=== PATIENT | male | born 1980 | race Caucasian/White ===

== ENCOUNTER 2021-10-03 16:17 | Emergency (ER) | payer OTHER ==
[~2021-10-03] VITALS: Ht 175 cm; Wt 100.0 kg
[2021-10-03 16:22] VITALS: BP 125/91
[2021-10-03] MEDS ORDERED: ONDANSETRON 4 MG/2 ML (SDV) Z0FRAN IVP ONE (17:15)
[2021-10-03] MEDS ORDERED: HYDROmorphone 2 MG/ML VIAL (DILAUDID) IV ONE ×2 (17:15→18:00)
--- NOTE | 2021-10-03 17:32 | Diagnostic Imaging Report ---
INDICATION: Left wrist pain post fall. EXAMINATION: AP, oblique and lateral views of the left wrist were obtained at 5:22 PM. FINDINGS: There is a comminuted impacted displaced fracture of the distal radius. There is dorsal displacement of the carpal row relative to the dominant radial fragment. IMPRESSION: Comminuted, displaced and articular fracture of the distal radius. Dictated by: Dictated on workstation # [id number]
--- NOTE | 2021-10-03 18:02 | ED Upper Extremity ---
General Chief Complaint: Upper Extremity Stated Complaint: L WRIST PAIN Nursing Triage Note: Pt stepped on uneven ground and tripped from standing position and fell on his left wrist. He has obvious deformity and some loss of AROM of his left thumb. Pt states that his left hand was at an odd angle and he remembered his training and pulled on his hand and wrist, straightened it and then held it in position on the way here. Source: patient Exam Limitations: no limitations History of Present Illness Date Seen by Provider: Oct 03, 2021 Time Seen by Provider: 17:57 Initial Comments This is a 41-year-old male that presents to the emergency room for evaluation of left wrist pain. He tripped at home and had a FOOSH injury. He currently rates his pain as a sharp 6 out of 10 that is worse with movement. He denies any other injuries at this time. Onset: just prior to arrival Pain/Injury Location: left wrist Method of Injury: fell Allergies and Home Medications Allergies Coded Allergies: bee venom protein (honey bee) (Verified Allergy, Severe, Anaphylaxis, 10/03/21) clindamycin (Verified Adverse Reaction, Severe, diarrhea, 10/03/21) Patient Home Medication List Home Medication List Reviewed: Yes Review of Systems Constitutional: no symptoms reported EENTM: no symptoms reported Respiratory: no symptoms reported Cardiovascular: no symptoms reported Gastrointestinal: no symptoms reported Genitourinary: no symptoms reported Musculoskeletal: see HPI Past Qtzslyd-Tubljn-Kvhmfe Hx Patient Social History Tobacco Use?: No Smoking Status: Former Smoker Use of E-Cig and/or Vaping dev: No Substance use?: No Alcohol Use?: No Pt feels they are or have been: No Immunizations Up To Date Influenza Vaccine Up-to-Date: Yes; Up-to-Date Physical Exam Vital Signs Vital Signs - First Documented 10/03/21 16:22 Temp 35.9 Pulse 72 Resp 18 B/P (MAP) 125/91 (102) Pulse Ox 96 O2 Delivery Room Air Capillary Refill : Less Than 3 Seconds Height, Weight, BMI Height: '" Weight: lbs. oz. kg; 32.00 BMI Method: General Appearance: WD/WN, no apparent distress HEENT: PERRL/EOMI Cardiovascular: regular rate, rhythm Gastrointestinal: non tender Back: normal inspection Hand: bone tenderness (Tenderness to palpation throughoutDistal radius), deform ity, limited ROM Neurologic/Psychiatric: gas leak tester II-XII nml as tested, oriented x 3 Progress/Results/Core Measures Results/Orders My Orders Orders - MAGED FAUSTIN Hydromorphone Injection (Dilaudid Inject (10/03/21 17:15) Ondansetron Injection (Zofran Injectio (10/03/21 17:15) Wrist, Left, 3 Views Or More (10/03/21 17:01) Hydromorphone Injection (Dilaudid Inject (10/03/21 18:00) Medications Given in ED Current Medications Medications Dose Ordered Sig/Gayatri Route Start Time Stop Time Status Last Admin Dose Admin Hydromorphone HCl 0.5 mg ONCE ONCE IV 10/03/21 17:15 10/03/21 17:16 DC 10/03/21 17:05 0.5 MG Ondansetron HCl 4 mg ONCE ONCE IVP 10/03/21 17:15 10/03/21 17:16 DC 10/03/21 17:05 4 MG Vital Signs/I&O 10/03/21 16:22 Temp 35.9 Pulse 72 Resp 18 B/P (MAP) 125/91 (102) Pulse Ox 96 O2 Delivery Room Air Blood Pressure Mean: 102 Departure Communication (Admissions) Patient is a comminuted, displaced intra-articular distal radius fracture. Images reviewed with Dr. JOSE and at this time we do not feel that reduction is indicated. Patient will be placed in a sugar-tong splint and be given follow-up with the orthopedic team. We discussed very detailed home care and return precautions and he is in agreement to the care plan. Impression Primary Impression: Distal radius fracture, left Disposition: HOME, SELF-CARE Condition: Stable Departure-Patient Inst. Decision time for Depature: 18:01 Referrals: SILVIA ROMEO MD Patient Instructions: Wrist Fracture (DC), How to Use a Shoulder Sling Add. Discharge Instructions: Please follow-up with the orthopedist as we discussed. Return to the emergency room with any severe changes or worsening of symptoms All discharge instructions reviewed with patient and/or family. Voiced understanding. Scripts Ondansetron (Ondansetron Odt) 4 Mg Tab.rapdis 4 MG PO TID for Nausea, #14 TAB Prov: MAGED FAUSTIN 6/25/22 Hydrocodone/Acetaminophen (Hydrocodone-Acetamin 5-325 mg) 5 Mg-325 Mg Tablet 1 TAB PO Q4H PRN for PAIN-MODERATE (5-7), #20 TAB Prov: MAGED FAUSTIN 10/03/21 MAGED FAUSTIN Oct 03, 2021 18:02
[2021-10-03] MEDS ORDERED: ACHD5005 PO (18:04)
[2021-10-03] MEDS ORDERED: ONDA4TAB11 PO (18:04)
== END 2021-10-03 19:12 | disposition home or self-care (01) ==
LOC: ER 16:19
DX: S52.572A Other intraarticular fracture of lower end of left radius, initial encounter for closed fracture (principal); Z87.891 Personal history of nicotine dependence; W01.0XXA Fall on same level from slipping, tripping and stumbling without subsequent striking against object, initial encounter; Y92.009 Unspecified place in unspecified non-institutional (private) residence as the place of occurrence of the external cause
CPT/HCPCS: 73110; 99284; A4565

== ENCOUNTER 2022-06-17 18:02 | Emergency (ER) | payer OTHER ==
[~2022-06-17] VITALS: Ht 175 cm; Wt 100.0 kg
[~2022-06-17 18:02] MED LIST: ACHD5005 PO; ONDA4TAB11 PO
[2022-06-17] MEDS ORDERED: morphine INJ 10 MG/ML 1ML (SYR OR VIAL) IVP STA (18:12)
[2022-06-17] MEDS ORDERED: ONDANSETRON 4 MG/2 ML (SDV) Z0FRAN IVP ONE (18:15)
[2022-06-17] MEDS ORDERED: NS IV 1000 ML 1,000 ML IV SCH (18:15)
--- NOTE | 2022-06-17 18:18 | ED Abdominal Pain ---
General Chief Complaint: Abdominal/GI Problems Stated Complaint: N/V ABD PAIN Nursing Triage Note: PT STATES ABD PAIN THAT STARTED 1500, DIARRHEA,AND VOMITING, DENIES URINARY SS. Source of Information: Patient Exam Limitations: No Limitations History of Present Illness Date Seen by Provider: Jun 17, 2022 Time Seen by Provider: 18:05 Initial Comments 42-year-old male presents the emergency department today for right upper quadrant, right flank abdominal pain. Symptoms started about 3:00 this afternoon. He had macaroni and cheese about 2 hours prior to onset of his symptoms. Associated symptoms include nausea and vomiting. Pain is constant in his right upper abdomen, described as sharp and stabbing. It does radiate to his right flank. No urinary symptoms. Has had diarrhea as well. He has had chills but no documented fevers. He has had no abdominal surgeries. All other systems reviewed and negative except documented per HPI. Voice recognition software was used to help create this chart Allergies and Home Medications Allergies Coded Allergies: bee venom protein (honey bee) (Verified Allergy, Severe, Anaphylaxis, 10/03/21) clindamycin (Verified Adverse Reaction, Severe, diarrhea, 10/03/21) Patient Home Medication List Home Medication List Reviewed: Yes Hydrocodone/Acetaminophen (Hydrocodone-Acetamin 5-325 mg) 5 Mg-325 Mg Tablet, 1 TAB PO Q4H PRN for PAIN-MODERATE (5-7) Prescribed by: Dave Rao on 10/03/211804 Ondansetron (Ondansetron Odt) 4 Mg Tab.rapdis, 4 MG PO TID Prescribed by: Dave Rao on 10/03/211803 Review of Systems Review of Systems Constitutional: chills Past Fbtojxg-Khsrne-Hvrkpn Hx Patient Social History Tobacco Use?: No Use of E-Cig and/or Vaping dev: No Substance use?: No Alcohol Use?: No Past Medical History Surgery/Hospitalization HX: GERD, genital herpes Family Medical History Reviewed Nursing Family Hx No Pertinent Family Hx Physical Exam Vital Signs Vital Signs - First Documented 06/17/22 18:07 Temp 35.7 Pulse 109 Resp 20 B/P (MAP) 100/78 (85) Pulse Ox 97 O2 Delivery Room Air Capillary Refill : Less Than 3 Seconds Height/Weight/BMI Height: '" Weight: lbs. oz. kg; 32.00 BMI Method: General Appearance: WD/WN, no apparent distress, other (Patient is vomiting) HEENT: normal ENT inspection, pharynx normal Neck: non-tender, supple Respiratory: chest non-tender, lungs clear, normal breath sounds, no respiratory distress, no accessory muscle use Cardiovascular: regular rate, rhythm, no murmur Gastrointestinal: normal bowel sounds, soft, no organomegaly, tenderness (Tenderness palpation of the right upper quadrant with voluntary guarding. No rebound tenderness. No mass organomegaly. No skin changes. Tenderness palpation of the right flank, parascapular region. No skin changes.) Extremities: normal range of motion, non-tender, normal inspection, no pedal edema, no calf tenderness Back: normal inspection, no vertebral tenderness, CVA tenderness (R) Neurologic/Psychiatric: alert, oriented x 3 Skin: normal color, warm/dry Progress/Results/Core Measures Results/Orders Lab Results Laboratory Tests Test 06/17/22 18:20 Range/Units White Blood Count 14.9 H 4.3-11.0 10^3/uL Red Blood Count 5.92 H 4.30-5.52 10^6/uL Hemoglobin 17.9 H 13.3-17.7 g/dL Hematocrit 52 40-54 % Mean Corpuscular Volume 88 80-99 fL Mean Corpuscular Hemoglobin 30 25-34 pg Mean Corpuscular Hemoglobin Concent 34 32-36 g/dL Red Cell Distribution Width 12.5 10.0-14.5 % Platelet Count 364 130-400 10^3/uL Mean Platelet Volume 9.4 9.0-12.2 fL Immature Granulocyte % (Auto) 0 % Neutrophils (%) (Auto) 75 42-75 % Lymphocytes (%) (Auto) 18 12-44 % Monocytes (%) (Auto) 6 0-12 % Eosinophils (%) (Auto) 1 0-10 % Basophils (%) (Auto) 0 0-10 % Neutrophils # (Auto) 11.2 H 1.8-7.8 10^3/uL Lymphocytes # (Auto) 2.6 1.0-4.0 10^3/uL Monocytes # (Auto) 0.8 0.0-1.0 10^3/uL Eosinophils # (Auto) 0.2 0.0-0.3 10^3/uL Basophils # (Auto) 0.0 0.0-0.1 10^3/uL Immature Granulocyte # (Auto) 0.0 0.0-0.1 10^3/uL Neutrophils % (Manual) 82 % Lymphocytes % (Manual) 3 % Monocytes % (Manual) 5 % Reactive Lymphocytes 10 % Stomatocytes SLIGHT Sodium Level 142 135-145 MMOL/L Potassium Level 3.7 3.6-5.0 MMOL/L Chloride Level 102 98-107 MMOL/L Carbon Dioxide Level 27 21-32 MMOL/L Anion Gap 13 5-14 MMOL/L Blood Urea Nitrogen 16 7-18 MG/DL Creatinine 1.38 H 0.60-1.30 MG/DL Estimat Glomerular Filtration Rate 65 BUN/Creatinine Ratio 12 Glucose Level 116 H 70-105 MG/DL Calcium Level 10.7 H 8.5-10.1 MG/DL Corrected Calcium 8.5-10.1 MG/DL Total Bilirubin 0.5 0.1-1.0 MG/DL Aspartate Amino Transf (AST/SGOT) 24 5-34 U/L Alanine Aminotransferase (ALT/SGPT) 44 0-55 U/L Alkaline Phosphatase 85 40-136 U/L Total Protein 8.8 H 6.4-8.2 GM/DL Albumin 5.1 H 3.2-4.5 GM/DL Lipase 25 8-78 U/L My Orders Orders - YESENIA SERNA DO Comprehensive Metabolic Panel (06/17/22 18:12) Lipase (06/17/22 18:12) Ua Culture If Indicated (06/17/22 18:12) Cbc With Automated Diff (06/17/22 18:12) Ct Abdomen/Pelvis Wo (06/17/22 18:12) Morphine Injection (Morphine Injection (06/17/22 18:12) Ondansetron Injection (Zofran Injectio (06/17/22 18:15) Ns Iv 1000 Ml (Sodium Chloride 0.9%) (06/17/22 18:15) Manual Differential (06/17/22 18:20) Medications Given in ED Current Medications Medications Dose Ordered Sig/Gayatri Route Start Time Stop Time Status Last Admin Dose Admin Ondansetron HCl 8 mg ONCE ONCE IVP 06/17/22 18:15 06/17/22 18:16 DC 06/17/22 18:27 8 MG Vital Signs/I&O 06/17/22 06/17/22 18:07 18:27 Temp 35.7 35.7 Pulse 109 Resp 20 B/P (MAP) 100/78 (85) Pulse Ox 97 O2 Delivery Room Air Blood Pressure Mean: 85 Departure Communication (Admissions) Patient initially with significant discomfort. Much improved after IV morphine. He also received Zofran for the vomiting he was having early on which completely relieved his nausea per his report. He has pretty focal right upper quadrant abdominal pain. Negative Menendez sign. This does extend into his right flank. We got a CT scan to rule out any evidence of ureterolithiasis and only shows some diffuse bowel wall edema consistent with likely enteritis. Unfortunately we do not have ultrasound available after hours. He does have a leukocytosis with no shift. No fever with otherwise normal vital signs. He was tachycardic while he was vomiting but he is not tachycardic at baseline with a rate in the 70s. He is normotensive. I do not believe he has acute cholecy stitis at this time. I spoke with her surgeon, Dr. Martinez. He requests patient be discharged with p.o. antibiotics just in case he were to have acute cholecystitis, really out of an abundance of caution. I will set him up for an outpatient gallbladder ultrasound and he will see Dr. Martinez in the clinic. I will provide him with pain medication, nausea medicine. The patient is c omfortable agreeable current plan of care. He has been given IV Zofran, IV morphine and again symptoms are greatly improved from his initial presentation. He is given strict return precautions should his pain worsen despite the provided therapies or in any way concerning to him that he will return to the emergency department. Impression Primary Impression: RUQ pain Additional Impression: Nausea vomiting and diarrhea Disposition: 01 HOME, SELF-CARE Condition: Stable Departure-Patient Inst. Referrals: [facility] – [place] (PCP/Family) Primary Care Physician MARGARITA MARTINEZ DO Patient Instructions: Nausea and Vomiting, Adult ED, Abdominal Pain, Adult ED Add. Discharge Instructions: You were seen in the emergency department today for nausea vomiting diarrhea and abdominal pain. No emergent medical condition is identified. This may be related to your gallbladder however it is more likely at this time that it is related to a GI bug given your CT scan findings. I recommend you take the antibiotics as prescribed in case this was related to your gallbladder. Have the ultrasound completed as scheduled and call Dr. Martinez's clinic to schedule a follow-up appointment. The information has been provided for you. Take the pain medication as prescribed as needed. Do not drive or make important decisions while taking this as it may make you drowsy use the nausea medicine as needed by dissolving it under your tongue. Increase your fluids at home, small sips frequently instead of large volumes which will distend your stomach and likely cause you to vomit. Return to the emergency department immediately if you have any severe pain is not responsive to the pain medication or if your symptoms change in any way concerning to you. All discharge instructions reviewed with patient and/or family. Voiced understanding. Scripts Hydrocodone/Acetaminophen (Hydrocodone-Acetamin 5-325 mg) 5 Mg-325 Mg Tablet 1 TAB PO Q4H PRN for PAIN-MODERATE (5-7) for 3 Days, #12 TAB Prov: YESENIA SERNA DO 06/17/22 Ondansetron (Ondansetron Odt) 8 Mg Tab.rapdis 8 MG SL Q6H PRN for NAUSEA/VOMITING for 3 Days, #12 TAB Prov: YESENIA SERNA DO 06/17/22 YESENIA SERNA DO Jun 17, 2022 18:18
[2022-06-17 18:30] LABS: BASOPHILS % (AUTO) 0 % (0-10); EOSINOPHILS # (AUTO) 0.2 10^3/uL (0.0-0.3); EOSINOPHILS % (AUTO) 1 % (0-10); HEMATOCRIT 52 % (40-54); HEMOGLOBIN 17.9 g/dL (13.3-17.7); LYMPHOCYTES # (AUTO) 2.6 10^3/uL (1.0-4.0); LYMPHOCYTES % (AUTO) 18 % (12-44); MEAN CORPUSCULAR HEMOGLOBIN 30 pg (25-34); MEAN CORPUSCULAR HGB CONC 34 g/dL (32-36); MEAN CORPUSCULAR VOLUME 88 fL (80-99); MEAN PLATELET VOLUME 9.4 fL (9.0-12.2); MONOCYTES # (AUTO) 0.8 10^3/uL (0.0-1.0); MONOCYTES % (AUTO) 6 % (0-12); NEUTROPHILS # (AUTO) 11.2 10^3/uL (1.8-7.8); NEUTROPHILS % (AUTO) 75 % (42-75); PLATELET COUNT 364 10^3/uL (130-400); WHITE BLOOD COUNT 14.9 10^3/uL (4.3-11.0)
[2022-06-17 18:39] LABS: ALBUMIN 5.1 GM/DL (3.2-4.5); CHLORIDE 102 MMOL/L (98-107); POTASSIUM 3.7 MMOL/L (3.6-5.0); SODIUM 142 MMOL/L (135-145)
[2022-06-17 18:40] LABS: CALCIUM 10.7 MG/DL (8.5-10.1)
[2022-06-17 18:41] LABS: GLUCOSE 116 MG/DL (70-105); TOTAL PROTEIN 8.8 GM/DL (6.4-8.2)
[2022-06-17 18:42] LABS: CARBON DIOXIDE 27 MMOL/L (21-32)
[2022-06-17 18:43] LABS: BILIRUBIN,TOTAL 0.5 MG/DL (0.1-1.0)
[2022-06-17 18:44] LABS: ALKALINE PHOSPHATASE 85 U/L (40-136)
[2022-06-17 18:45] LABS: CREATININE SERUM 1.38 MG/DL (0.60-1.30); GFR ESTIMATED 65
[2022-06-17 18:46] LABS: BUN/CREATININE RATIO 12
[2022-06-17 18:48] LABS: ALANINE AMINOTRANSFERASE 44 U/L (0-55); LIPASE 25 U/L (8-78)
[2022-06-17 18:52] LABS: LYMPHOCYTES % (MANUAL) 3 %; MONOCYTES % (MANUAL) 5 %; NEUTROPHILS % (MANUAL) 82 %; REACTIVE LYMPHOCYTES 10 %; STOMATOCYTES SLIGHT
--- NOTE | 2022-06-17 18:55 | Diagnostic Imaging Report ---
PROCEDURE: CT abdomen and pelvis without contrast. TECHNIQUE: Multiple contiguous axial images were obtained through the abdomen and pelvis without the use of intravenous contrast. Auto Exposure Controls were utilized during the CT exam to meet ALARA standards for radiation dose reduction. INDICATION: Right upper quadrant and right flank pain. Diarrhea. Nausea. COMPARISON: None. FINDINGS: Lung bases are clear. Nonspecific well-circumscribed regions in the posterior right hepatic lobe may represent benign cysts or hemangiomas. The gallbladder, pancreas, spleen, adrenals, kidneys, collecting systems, decompressed bladder and appendix are negative. Diffusely fluid-filled small bowel and colon. No free intraperitoneal air or fluid. No lymphadenopathy. No evidence of bowel obstruction. No acute osseous findings. IMPRESSION: 1. Diffusely fluid-filled small bowel and colon likely due to an enteritis. No free intraperitoneal air/fluid, bowel wall thickening or evidence of bowel obstruction. 2. Nonspecific well-circumscribed low-attenuation regions in the liver compatible with benign cysts or hemangiomas. Dictated by: Dictated on workstation # [id number]
[2022-06-17] MEDS ORDERED: ACHD5005 PO (19:23)
[2022-06-17] MEDS ORDERED: ONDA8TAB13 SL (19:23)
[2022-06-17] MEDS ORDERED: LEVO-55 PO (19:24)
[2022-06-17 19:35] VITALS: BP 100/78
== END 2022-06-17 19:35 | disposition home or self-care (01) ==
LOC: EDUNIT# 18:02 → ER 18:04
DX: R10.11 Right upper quadrant pain (principal); R11.2 Nausea with vomiting, unspecified; R19.7 Diarrhea, unspecified; D72.829 Elevated white blood cell count, unspecified
CPT/HCPCS: 36415; 74176; 80053; 83690; 85007; 85027